=== PATIENT | male | born 1945 | race Caucasian/White ===

== ENCOUNTER 2018-09-11 05:33 | Observation (INO) | payer MEDICARE, OTHER ==
[2018-09-09 11:01] LABS: CLARITY,URINE CLEAR (Clear); COLOR,URINE YELLOW (Yellow); GLUCOSE, URINE NEGATIVE (Neg); KETONES,URINE TRACE mg/dl (Neg); LEUKOCYTE ESTERASE ,URINE NEGATIVE (Neg); NITRITES, URINE NEGATIVE (Neg); OCCULT BLOOD,URINE TRACE-LYSED (Neg); PH,URINE 5.5 (4.8-8.0); PROTEIN,URINE NEGATIVE (Neg); UROBILINOGEN,URINE 0.2 E.U/dL (0.2-1.0)
[2018-09-09 11:04] LABS: UA COLLECTION TYPE NON-SPECIFIED
[2018-09-09 11:07] LABS: BASOPHILS % (AUTO) 0.6 % (0-1); EOSINOPHILS # (AUTO) 0.2 X10'3 (0-0.9); EOSINOPHILS % (AUTO) 3.7 % (0-6); LYMPHOCYTES # (AUTO) 0.6 X10'3 (1.1-4.8); LYMPHOCYTES % (AUTO) 10.1 % (21-51); MEAN CORPUSCULAR HEMOGLOBIN 30.9 PG (27.0-31.0); MEAN CORPUSCULAR HGB CONC 33.2 g/dL (33.0-36.5); MEAN CORPUSCULAR VOLUME 93.1 FL (78-98); MEAN PLATELET VOLUME 10.1 FL (7.4-10.4); MONOCYTES # (AUTO) 0.6 X10'3 (0-0.9); MONOCYTES % (AUTO) 10.3 % (2-12); NEUTROPHILS # (AUTO) 4.2 X10'3 (1.8-7.7); NEUTROPHILS % (AUTO) 75.3 % (42-75); PRE OP HEMATOCRIT 41.9 % (42.0-52.0); PRE OP HEMOGLOBIN 13.9 g/dL (14.0-17.9); PRE OP PLATELET COUNT 153 X10'3 (140-440)
[2018-09-09 11:15] LABS: MUCUS STRANDS MANY /LPF (Neg); SQUAMOUS EPITHELIAL CELL,UR FEW /LPF (FEW)
[2018-09-09 11:16] LABS: PRE OP INR 1.1 INR; PRE OP PROTIME 11.4 SECONDS (9.0-12.0)
[2018-09-09 11:16] LABS: BACTERIA,URINE NONE SEEN /HPF (Neg); RBC,URINE 0-2 /HPF (0-2); TRANSITIONAL EPI CELLS,URINE FEW /HPF; WBC,URINE 0-4 /HPF (0-4)
[2018-09-09 11:20] LABS: ALBUMIN 3.6 G/DL (3.4-5.0); ALBUMIN/GLOBULIN RATIO 1.2 (1.1-1.5); ALKALINE PHOSPHATASE 144 IU/L (46-116); BLOOD UREA NITROGEN 16 MG/DL (7-18); CALCIUM 9.1 MG/DL (8.5-10.1); CHLORIDE 105 MMOL/L (99-107); CREATININE 0.94 MG/DL (0.60-1.10); PRE OP ANION GAP 7 (8-16); PRE OP BILIRUB, TOTAL 0.8 MG/DL (0.0-1.0); PRE OP GLUCOSE 86 MG/DL (70-104); PRE OP POTASSIUM 4.1 MMOL/L (3.4-5.1); PRE OP SODIUM 138 MMOL/L (135-145); TOTAL CARBON DIOXIDE 25.6 MMOL/L (24-32); TOTAL PROTEIN 6.5 G/DL (6.4-8.2); eGFR 78 ML/MIN
[2018-09-09 11:24] LABS: PRE OP ALT 194 U/L (30-65); PRE OP AST 176 U/L (10-37)
[2018-09-11] VITALS (18 sets, daily range): BP systolic 127–158; BP diastolic 62–84
[~2018-09-11] VITALS: Ht 188 cm; Wt 92.5 kg
[~2018-09-11 05:33] MED LIST: APIX5TAB3 PO; FLEC150T2 PO; famotidine 20mg tablet PO ONE
[2018-09-11] MEDS ORDERED: cefotetan 2gm/isosm dext IVPB 50 ML IV ONE (06:00)
[2018-09-11] MEDS ORDERED: ceFAZolin 1000mg inj ONE (06:48)
[2018-09-11] MEDS ORDERED: BUPIVAcaine/PF 2.5mg/ml (0.25%) 10ml vial ONE (06:48)
[2018-09-11] MEDS: ringers solution, lacted 1,000 ML IV SCH ×2 (07:03→16:29)
[2018-09-11] MEDS ORDERED: sevoflurane 250ml liquid IH ONE (09:23)
[2018-09-11] MEDS ORDERED: fentaNYL/PF 50MCG/1 ML 2ML syringe ONE (09:24)
[2018-09-11] MEDS ORDERED: midazolam 2 mg/2 ml injection ONE (09:24)
[2018-09-11] MEDS ORDERED: propofol inj 20 ML IV ONE (09:25)
[2018-09-11] MEDS ORDERED: LIDOcaine 2% (20mg/ml) 5ml vial ONE (09:25)
[2018-09-11] MEDS ORDERED: dexamethasone sod phosphate 4mg/ml inj. ONE (09:26)
[2018-09-11] MEDS ORDERED: rocuronium 10mg/ml inj IV ONE (09:26)
[2018-09-11] MEDS ORDERED: ondansetron/PF 4mg/2ml inj ONE (09:40)
[2018-09-11] MEDS ORDERED: ketorolac trometh. 30mg/ml inj. ONE (09:40)
[2018-09-11] MEDS ORDERED: ringers solution, lacted 1,000 ML IV SCH (09:50)
[2018-09-11] MEDS ORDERED: proCHLORperazine 10 MG/2 ml inj IV PRN (09:50)
[2018-09-11] MEDS ORDERED: morphine 4 MG/ML inj SYRINge IV PRN ×2 (09:50)
[2018-09-11] MEDS ORDERED: meperidine/PF 25mg/ml syringe IV PRN ×3 (09:50)
[2018-09-11] MEDS ORDERED: ondansetron/PF 4mg/2ml inj IV PRN ×2 (09:50→10:50)
[2018-09-11] MEDS ORDERED: HYDROcodone/acetaminophen 10/325mg tab PO PRN (10:50)
[2018-09-11] MEDS ORDERED: normal saline 1000ml 1,000 ML IV SCH (10:50)
[2018-09-11] MEDS ORDERED: HYDROcodone/acetaminophen 5mg/325mg tablet PO PRN (10:50)
--- NOTE | 2018-09-11 12:04 | NUR ---
Patient in room . I have received report from [facility] Paige and had the opportunity to ask questions and assume patient care.
--- NOTE | 2018-09-11 12:53 | NUR ---
Report called to receiving nurse. Transferred via WHEELCHAIR TO NUCLEAR MED WHERE REYNA AND TEA ASSUMED CARE FOR PATIENT. ALL Belongings SENT TO SURGICAL BED 345A EXCEPT GLASSES WHICH PATIENT HAS ON. [facility] MESSER AWARE PATIENT WILL COME BACK TO HER FOLLOWING HIDA SCAN, AWARE OF PLAN AT THIS TIME. VSS. DRESSING CDI. CHANGED TO GOWN AND TAKEN DOWN TO NUC MED. Special Issues communicated to receiving nurse. Addendum: 09/11/18 at 1309 by Royal Alarcon - [facility] XIONG Amended: Links added.
--- NOTE | 2018-09-11 14:45 | NUR ---
Pt transferred to surgical floor from nuclear medicine. Pt settled in bed, call light in reach. 1 bag of belongings brought from OR. at bedside.
--- NOTE | 2018-09-11 18:01 | NUR ---
Pt discharged to home with all belongings, in private vehicle. Discharge instructions and medications reviewed. Pain medication prescribed out of office. Pt instructed to follow up with Dr Thurman on Sunday or and to return to ED if any signs/symptoms of bleeding or infection occur. IV DC'd, cannula intact. Pt escorted to front lobby via wheelchair by PCT.
== END 2018-09-11 17:50 | disposition home or self-care (01) ==
LOC: PAS 05:33 → SUR 3N 16:51
PROVIDERS: ADMIT Surgery; ATTEND Surgery
DX: K81.1 Chronic cholecystitis (principal)
CPT/HCPCS: 36415; 47562; 78226; 80053; 81001; 82948; 85025; 85610; 85730; 93005; 96374; 96375; A9537; G0378; J0690; J1100; J1885; J2001; J2175; J2250; J2270; J2405; J2704; J3010; J3490; J7030; J7120; 88304; A7000

== ENCOUNTER 2022-12-12 11:50 | Day surgery (SDC) | payer MEDICARE, OTHER ==
[2022-12-08 12:50] LABS: ANION GAP 12 (8-16); BLOOD UREA NITROGEN 20 MG/DL (7-18); BUN/CREATININE RATIO 17.5 (10.0-20.0); CHLORIDE 107 MMOL/L (99-107); CREATININE 1.14 MG/DL (0.60-1.10); GLUCOSE 86 MG/DL (70-104); POTASSIUM 4.1 MMOL/L (3.5-5.1); SODIUM 144 MMOL/L (135-145); TOTAL CARBON DIOXIDE 24.6 MMOL/L (24-32); eGFR 62 ML/MIN
[2022-12-08 12:54] LABS: APTT 32 SECONDS (22-32); BASOPHILS % (AUTO) 0.4 % (0-1); EOSINOPHILS % (AUTO) 0.2 % (0-6); HEMATOCRIT 42.6 % (42.0-52.0); HEMOGLOBIN 14.2 g/dl (14.0-17.9); LYMPHOCYTES # (AUTO) 0.6 X10'3 (1.1-4.8); LYMPHOCYTES % (AUTO) 8.5 % (21-51); MEAN CORPUSCULAR HEMOGLOBIN 31.4 PG (27.0-31.0); MEAN CORPUSCULAR HGB CONC 33.3 g/dL (33.0-36.5); MEAN CORPUSCULAR VOLUME 94.2 FL (78-98); MEAN PLATELET VOLUME 10.3 FL (7.4-10.4); MONOCYTES # (AUTO) 0.5 X10'3 (0-0.9); MONOCYTES % (AUTO) 8.1 % (2-12); NEUTROPHILS # (AUTO) 5.5 X10'3 (1.8-7.7); NEUTROPHILS % (AUTO) 82.8 % (42-75); PLATELET COUNT 134 X10'3 (140-440); RED BLOOD COUNT 4.52 X10'6 (4.70-6.10); RED CELL DISTRIBUTION WIDTH 14.4 % (11.5-14.5); WHITE BLOOD COUNT 6.7 X10'3 (4.5-11.0)
[2022-12-12] VITALS (14 sets, daily range): BP systolic 107–134; BP diastolic 58–88
[~2022-12-12] VITALS: Ht 188 cm; Wt 95.5 kg
[~2022-12-12 11:50] MED LIST changes: -famotidine 20mg tablet PO ONE
[2022-12-12] MEDS ORDERED: MIDAZolam 1mg/ml 10ml vial IV ONE (11:55)
[2022-12-12] MEDS ORDERED: fentaNYL/PF 50MCG/1 ML 2ML syringe IV ONE (11:55)
[2022-12-12] MEDS ORDERED: normal saline 1000ml 1,000 ML IV SCH (11:55)
[2022-12-12] MEDS ORDERED: SUCR1TAB PO (12:32)
== END 2022-12-12 15:20 | disposition home or self-care (01) ==
LOC: SSTAY O 11:50
PROVIDERS: ATTEND Student in an Organized Health Care Education/Training Program
DX: I48.91 Unspecified atrial fibrillation (principal); I48.92 Unspecified atrial flutter; Z79.01 Long term (current) use of anticoagulants; Z79.899 Other long term (current) drug therapy
CPT/HCPCS: 36415; 80048; 85025; 85610; 85730; 92960; J2250; J3010; J7030; A4620

== ENCOUNTER 2023-07-06 08:22 | Outpatient (CLI) | payer MEDICARE, OTHER ==
[~2023-07-06 08:22] MED LIST changes: +SUCR1TAB PO
[2023-07-06 08:52] LABS: BASOPHILS % (AUTO) 0.4 % (0-1); EOSINOPHILS % (AUTO) 0.5 % (0-6); HEMATOCRIT 42.6 % (42.0-52.0); HEMOGLOBIN 14.3 g/dl (14.0-17.9); LYMPHOCYTES # (AUTO) 0.4 X10'3 (1.1-4.8); LYMPHOCYTES % (AUTO) 7.1 % (21-51); MEAN CORPUSCULAR HEMOGLOBIN 31.4 PG (27.0-31.0); MEAN CORPUSCULAR HGB CONC 33.5 g/dL (33.0-36.5); MEAN CORPUSCULAR VOLUME 93.7 FL (78-98); MEAN PLATELET VOLUME 9.3 FL (7.4-10.4); MONOCYTES # (AUTO) 0.4 X10'3 (0-0.9); MONOCYTES % (AUTO) 7.3 % (2-12); NEUTROPHILS # (AUTO) 5.1 X10'3 (1.8-7.7); NEUTROPHILS % (AUTO) 84.7 % (42-75); PLATELET COUNT 141 X10'3 (140-440); RED BLOOD COUNT 4.54 X10'6 (4.70-6.10); RED CELL DISTRIBUTION WIDTH 14.1 % (11.5-14.5)
[2023-07-06 09:03] LABS: ANION GAP 10 (8-16); BLOOD UREA NITROGEN 21 MG/DL (7-18); BUN/CREATININE RATIO 18.3 (10.0-20.0); CHLORIDE 102 MMOL/L (99-107); CREATININE 1.15 MG/DL (0.60-1.10); GLUCOSE 107 MG/DL (70-104); POTASSIUM 4.4 MMOL/L (3.5-5.1); SODIUM 137 MMOL/L (135-145); TOTAL CARBON DIOXIDE 25.3 MMOL/L (24-32); eGFR 61 ML/MIN
[2023-07-06 09:09] LABS: APTT 31 SECONDS (22-32); INR 1.1 INR; PROTHROMBIN TIME 12.1 SECONDS (9.0-12.0)
== END 2023-07-06 23:59 | disposition home or self-care (01) ==
LOC: LAB 08:22 → EDSTATUS 07-09 14:00
PROVIDERS: ATTEND Student in an Organized Health Care Education/Training Program
DX: Z01.812 Encounter for preprocedural laboratory examination (principal); I48.91 Unspecified atrial fibrillation; I35.0 Nonrheumatic aortic (valve) stenosis; I48.3 Typical atrial flutter; Z79.01 Long term (current) use of anticoagulants
CPT/HCPCS: 36415; 80048; 85025; 85610; 85730; 92960